=== PATIENT | male | born 1960 | race Caucasian/White ===

== ENCOUNTER 2018-10-23 20:30 | Emergency (ER) | payer BC, OTHER ==
[2018-10-23 20:35] VITALS: BMI 22.2
[2018-10-23] MEDS ORDERED: ACETAMINOPHEN 500 MG TABLET (FP) PO ONE (21:44)
[2018-10-23] MEDS ORDERED: SILVER SULFADIAZINE 1% TOP CREAM 50 GM JAR TP ONE ×2 (21:44→21:46)
[2018-10-23] MEDS ORDERED: CEPHALEXIN MONOHYDRATE 500 MG CAPSULE (UD) PO ONE (21:45)
[2018-10-23] MEDS ORDERED: CEPHALEXIN MONOHYDRATE 500 MG CAPSULE (UD) ONE (21:46)
[2018-10-23] MEDS ORDERED: ACETAMINOPHEN 325 MG TABLET (FP) ONE (21:46)
[2018-10-23] MEDS ORDERED: BACITRACIN 0.9 GM PACKET ONE (21:46)
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
[2018-10-23 23:31] VITALS: BP 164/96; PULSE 90
[2018-10-23 23:34] VITALS: TEMP 97.6
== END 2018-10-23 23:31 | disposition short-term general hospital (02) ==
LOC: JER 20:30
PROC: 2W2EX4Z Dressing of Right Hand using Bandage (ICD-10-PCS; principal; 2018-10-23)
PROC: 2W2LX4Z Dressing of Right Lower Extremity using Bandage (ICD-10-PCS; 2018-10-23)
DX: T23.291A Burn of second degree of multiple sites of right wrist and hand, initial encounter (principal); T24.221A Burn of second degree of right knee, initial encounter; T31.0 Burns involving less than 10% of body surface; X03.8XXA Other exposure to controlled fire, not in building or structure, initial encounter; Y93.G2 Activity, grilling and smoking food; Y92.018 Other place in single-family (private) house as the place of occurrence of the external cause; Y99.8 Other external cause status
CPT/HCPCS: 99283-25